=== PATIENT | female | born 1970 | race African-American/Black ===

== ENCOUNTER 2021-05-12 17:59 | Emergency (ER) | payer BC, SELFPAY ==
[2021-05-12] MEDS ORDERED: diphenhydrAMINE 25 MG CAP ONE (18:18)
[2021-05-12] MEDS ORDERED: Dexamethasone 20 MG/5 ML VIAL ONE (18:30)
== END 2021-05-12 18:55 | disposition home or self-care (01) ==
LOC: NAV ERS 17:59
DX: R21 Rash and other nonspecific skin eruption (principal)
CPT/HCPCS: 96372; 99283; J1100; Q0163

== ENCOUNTER 2021-06-20 17:52 | Emergency (ER) | payer BC ==
[2021-06-20] MEDS ORDERED: methylPREDNISolone Sod Succ/PF 125 MG/2 ML VIAL ONE (19:23)
[2021-06-20 19:50] LABS: #Basophils 0.1 thou/uL (0.0-0.2); #Eosinphils 0.4 thou/uL (0.0-0.7); #Lymphocytes 1.4 thou/uL (1.20-3.40); #Monocytes 0.5 thou/uL (0.11-0.59); #Neutrophils 4.2 thou/uL (1.40-6.50); %Basophils 1.8 % (0.0-1.0); %Eosinophils 6.4 % (0.0-10.0); %Lymphocytes 20.2 % (21.0-51.0); %Neutrophils 63.7 % (42.0-75.0); Hemoglobin 11.1 g/dL (12.0-16.0); Mean Corpuscular HGB CONC 30.9 g/dL (32.0-36.0); Mean Corpuscular Hemoglobin 22.5 pg (27.0-31.0); Mean Corpuscular Volume 72.6 fL (78.0-98.0); Mean Platelet Volume 8.2 fL (7.4-10.4); Platelet Count 344 thou/uL (130-400); RBC Distribution Width 14.9 % (11.5-14.5); Red Blood Cell (RBC) Count 4.92 mill/uL (4.20-5.40); White Blood Cell (WBC) Count 6.7 thou/uL (4.8-10.8)
[2021-06-20 19:56] LABS: ALT (SGPT) 13 U/L (8-55); AST (SGOT) 20 U/L (5-34); Albumin 3.7 g/dL (3.5-5.0); Alkaline Phosphatase 60 U/L (40-110); Anion Gap 13 mmol/L (10-20); BUN (Urea Nitrogen) 15 mg/dL (7.0-18.7); Bilirubin, Total 0.3 mg/dL (0.2-1.2); Calc. Creatinine Clearance 0 mL/min (70-130); Calcium 8.7 mg/dL (7.8-10.44); Carbon Dioxide 22 mmol/L (22-29); Chloride 107 mmol/L (98-107); Globulin 3.2 g/dL (2.4-3.5); Glucose 85 mg/dL (70-105); Potassium 4.4 mmol/L (3.5-5.1); Protein, Total 6.9 g/dL (6.0-8.3); Sodium 138 mmol/L (136-145)
== END 2021-06-20 21:30 | disposition home or self-care (01) ==
LOC: NAV ERS 17:52
DX: J45.901 Unspecified asthma with (acute) exacerbation (principal)
CPT/HCPCS: 71045; 80053; 84484; 85025; 93005; 96374; J2930; J7620

== ENCOUNTER 2023-05-09 20:14 | Emergency (ER) | payer OTHER, BC ==
[2023-05-09] MEDS ORDERED: Aspirin Chewable 81 MG TAB ONE (20:48)
[2023-05-09 20:58] LABS: #Eosinphils 0.2 thou/uL (0.0-0.7); #Lymphocytes 2.3 thou/uL (1.20-3.40); #Monocytes 0.5 thou/uL (0.11-0.59); #Neutrophils 3.7 thou/uL (1.40-6.50); %Basophils 1.3 % (0.0-1.0); %Eosinophils 2.9 % (0.0-10.0); %Lymphocytes 33.6 % (21.0-51.0); %Monocytes 7.8 % (0.0-10.0); %Neutrophils 54.4 % (42.0-75.0); Hematocrit 36.6 % (36.0-47.0); Hemoglobin 11.3 g/dL (12.0-16.0); Mean Corpuscular HGB CONC 30.8 g/dL (32.0-36.0); Mean Corpuscular Volume 71.6 fl (78.0-98.0); Mean Platelet Volume 8.5 fL (7.4-10.4); Platelet Count 298 10x3/uL (130-400); RBC Distribution Width 12.7 % (11.5-14.5); Red Blood Cell (RBC) Count 5.11 mill/uL (4.20-5.40); White Blood Cell (WBC) Count 6.9 10x3/uL (4.8-10.8)
[2023-05-09 20:59] LABS: #Basophils 0.1 thou/uL (0.0-0.2); BUN (Urea Nitrogen) 13 mg/dL (7.0-18.7); Carbon Dioxide 19 mmol/L (22-29); Chloride 108 mmol/L (98-107); Potassium 5.2 mmol/L (3.5-5.1); Sodium 138 mmol/L (136-145); Troponin I Less than 0.010 ng/mL (< 0.028)
[2023-05-09 21:00] LABS: ALT (SGPT) 16 U/L (8-55); AST (SGOT) 23 U/L (5-34); Alkaline Phosphatase 65 U/L (40-110); Bilirubin, Total 0.3 mg/dL (0.2-1.2); Calc. Creatinine Clearance 0 mL/min (70-130); Estimated GFR 61; Globulin 3.2 g/dL (2.4-3.5); Glucose 89 mg/dL (70-105); Protein, Total 7.2 g/dL (6.0-8.3)
[2023-05-09 21:46] LABS: Anion Gap 16 mmol/L (10-20)
[2023-05-09] MEDS ORDERED: Ketorolac Tromethamine 30 MG/ML VIAL ONE (21:58)
[2023-05-09] MEDS ORDERED: Morphine 4 MG/ML VIAL ONE (23:38)
[2023-05-09] MEDS ORDERED: Ondansetron PF 4 MG/2 ML Vial ONE (23:38)
[2023-05-10 00:12] LABS: Troponin I Less than 0.010 ng/mL (< 0.028)
== END 2023-05-10 00:51 | disposition home or self-care (01) ==
LOC: NAV ERS 20:14
DX: R07.89 Other chest pain (principal); J45.909 Unspecified asthma, uncomplicated; Y92.69 Other specified industrial and construction area as the place of occurrence of the external cause; Z79.899 Other long term (current) drug therapy
CPT/HCPCS: 36415; 71045; 80053; 84484; 85025; 93005; 96374; 96375; J1885; J2270; J2405